=== PATIENT | male | born 1965 | race Caucasian/White ===

== ENCOUNTER 2021-03-29 13:18 | Inpatient (IN) | payer BC ==
[~2021-03-29] VITALS: Ht 182.9 cm; Wt 120.2 kg
[~2021-03-29 13:18] MED LIST: ALLOPURINOL100 MG PO; EXPECTORANT200 MG PO; NORFLEX 100 MG100 MG PO; SILDENAFIL20 MG PO; ZITHROMAX250 MG PO
[2021-03-29 15:22] LABS: HEMOGLOBIN 16.4 gm/dl (14.0-17.5); RED BLOOD COUNT 4.64 M/UL (4.20-5.50); WHITE BLOOD COUNT 10.2 K/UL (4.5-11.0)
[2021-03-29 15:43] LABS: BUN/CREATININE RATIO 15 (0-10)
--- NOTE | 2021-03-30 01:55 | NUR ---
PROVIDER ORDERED 500 ML BLOUS OF NS THEN NS AT 125ML/HR. MAINTAIN SBP 90 or >
[2021-03-30 06:51] LABS: HEMOGLOBIN 14.6 gm/dl (14.0-17.5); RED BLOOD COUNT 4.2 M/UL (4.20-5.50); WHITE BLOOD COUNT 9.2 K/UL (4.5-11.0)
[2021-03-30 07:12] LABS: BUN/CREATININE RATIO 16 (0-10)
[2021-03-31 04:45] LABS: BUN/CREATININE RATIO 12 (0-10)
[2021-04-01 04:22] LABS: HEMOGLOBIN 13.9 gm/dl (14.0-17.5); WHITE BLOOD COUNT 10.8 K/UL (4.5-11.0)
[2021-04-02 07:48] LABS: HEMOGLOBIN 12.7 gm/dl (14.0-17.5); RED BLOOD COUNT 3.65 M/UL (4.20-5.50)
[2021-04-02 07:54] LABS: WHITE BLOOD COUNT 6.9 K/UL (4.5-11.0)
[2021-04-02 08:01] LABS: BUN/CREATININE RATIO 16 (0-10)
--- NOTE | 2021-04-02 14:57 | NUR ---
PATIENT RETURNED FROM OR AGITATED AND UPSET. PULLED O2 OFF, PULLED TELE OFF, RIPPED IV OUT. ATTEMPTED TO GET OOB. NURSE AND DRIVE IN WAITER/WAITRESS ATTEMPTED TO REDIRECT PATIENT TO STAY IN BED. ATTEMPTED TO NOTIFY [employer] MANAGER OF PATIENT BEHAVIOR AND NEED FOR SITTER. NURSE AND DRIVE IN WAITER/WAITRESS CONTINUED TO REDIRECT PATIENT BEHAVIOR. LEFT MESSAGE AT EXTENSION AND PHONE. PATIENT SITTING ON SIDE OF BED AT THIS TIME. REFUSES TO HAVE IV RESTARTED. PATIENT MORE ALERT THAN UPON RETURN FROM OR. STATED HE KNEW HE COULDN'T GET UP ON HIS RIGHT LEG. ATTEMPTED TO GET PATIENT TO LAY BACK IN BED. PATIENT REFUSED. WCTM.
[2021-04-03 07:14] LABS: HEMOGLOBIN 12.3 gm/dl (14.0-17.5); RED BLOOD COUNT 3.56 M/UL (4.20-5.50); WHITE BLOOD COUNT 7.2 K/UL (4.5-11.0)
[2021-04-03 07:51] LABS: BUN/CREATININE RATIO 23 (0-10)
[2021-04-03 12:39] LABS: MONONUCLEAR CELLS 5.6 (75-100); POLYMORPHONUCLEAR % 94.4 (0-25); RBC (AUTOMATED) 3700 (0-2000); WBC (AUTOMATED) 17140 (0-200)
--- NOTE | 2021-04-03 14:10 | NUR ---
AT 1030AM PERFORMED A LEFT KNEE JOINT ASPIRATION WITH ASSISTANCE FROM ANGELA DAVIDSON APRN. 50CC OF FLUID WAS REMOVED. PATIENT TOLERATED WELL. NO DISTRESS OR C/O NOTED. WCTM.
[2021-04-04 06:44] LABS: RED BLOOD COUNT 3.51 M/UL (4.20-5.50); WHITE BLOOD COUNT 5.9 K/UL (4.5-11.0)
[2021-04-04 07:28] LABS: BUN/CREATININE RATIO 23 (0-10)
[2021-04-04 13:11] LABS: PROTEIN, BODY FLUID 4.2 g/dL (.)
[2021-04-05 05:43] LABS: BUN/CREATININE RATIO 18 (0-10)
[2021-04-06 07:01] LABS: HEMOGLOBIN 13.1 gm/dl (14.0-17.5); RED BLOOD COUNT 3.75 M/UL (4.20-5.50); WHITE BLOOD COUNT 6.3 K/UL (4.5-11.0)
[2021-04-06 07:39] LABS: BUN/CREATININE RATIO 17 (0-10)
[2021-04-06] MEDS ORDERED: INVANZ 1 GM VIAL1 GM IV (16:10)
[2021-04-06] MEDS ORDERED: ASPIRIN EC81 MG PO (16:10)
[2021-04-06] MEDS ORDERED: VANCOMYCIN750 MG/151 IV (16:10)
== END 2021-04-06 17:53 | disposition home or self-care (01) | DRG 580 ==
LOC: ER1 13:18 → M/S 19:26 → CDU 19:26 → M/S 03-30 00:03
PROVIDERS: Internal Medicine Infectious Disease; Physician Assistant; Physician Assistant Medical; Podiatrist Foot & Ankle Surgery; ADMIT Internal Medicine
PROC: 0QBL0ZX Excision of Right Tarsal, Open Approach, Diagnostic (ICD-10-PCS; 2021-04-02)
PROC: 0JDQ0ZZ Extraction of Right Foot Subcutaneous Tissue and Fascia, Open Approach (ICD-10-PCS; principal; 2021-04-02 11:48)
DX: L03.115 Cellulitis of right lower limb (principal); E87.1 Hypo-osmolality and hyponatremia; Z20.822 Contact with and (suspected) exposure to COVID-19; E66.01 Morbid (severe) obesity due to excess calories; M10.9 Gout, unspecified; L97.519 Non-pressure chronic ulcer of other part of right foot with unspecified severity; M25.462 Effusion, left knee; R03.0 Elevated blood-pressure reading, without diagnosis of hypertension; Z83.3 Family history of diabetes mellitus; Z90.49 Acquired absence of other specified parts of digestive tract; Z68.29 Body mass index [BMI] 29.0-29.9, adult
CPT/HCPCS: 36415; 73562; 73630; 73700; 80048; 80053; 80202; 81001; 82945; 83036; 83605; 83735; 84157; 84550; 85025; 85027; 85652; 86140; 87040; 87070; 87077; 87186; 87205; 93926; 93970; 96374; 96375; 97161; 97530; 97530-GP-CQ; 99284; C1751; G0378; J0692; J1100; J1170; J1335; J1580; J1650; J2001; J2250; J2270; J2405; J2704; J2795; J3010; J3370; J7030; J7070; J7120; U0002

== ENCOUNTER 2021-04-20 14:06 | Emergency (ER) | payer BC ==
[~2021-04-20 14:06] MED LIST changes: +ASPIRIN EC81 MG PO; +INVANZ 1 GM VIAL1 GM IV; +VANCOMYCIN750 MG/151 IV
[2021-04-20] MEDS ORDERED: BACTRIM DS TAB1 EACH PO (15:41)
== END 2021-04-20 15:50 | disposition home or self-care (01) ==
LOC: ER1 14:06
DX: T82.897A Other specified complication of cardiac prosthetic devices, implants and grafts, initial encounter (principal); L03.115 Cellulitis of right lower limb; F17.200 Nicotine dependence, unspecified, uncomplicated; X58.XXXA Exposure to other specified factors, initial encounter
CPT/HCPCS: 99283

== ENCOUNTER → 2021-04-26 | Outpatient (CLI) | payer BC ==
[~2021-04-26] MED LIST changes: +BACTRIM DS TAB1 EACH PO
--- NOTE | 2021-04-26 13:33 | NUR ---
SINGLE LUMEN PICC LINE INSERTED IN THE LEFT BASILIC VEIN, CUT TO 55 CM. US GUIDANCE USED TO OBTAIN VENOUS ACCESS. 3CG TECHNOLOGY USED TO CONFIRM PICC TIP IN SVC. STERILE TECHNIQUE USED THROUGHOUT CASE. STERILE DRESSING APPLIED AND DATED. PT PROVIDED WITH DRESSING CHANGE INSTRUCTIONS PRIOR TO DISCHARGE. ASPIRATES AND FLUSHES WELL.
== END | disposition home or self-care (01) ==
LOC: OPSV 07:44
DX: L03.031 Cellulitis of right toe (principal)
CPT/HCPCS: C1751

== ENCOUNTER → 2021-04-27 | Outpatient (CLI) | payer BC | LOC: OPSV 14:00 | DX: L03.031 Cellulitis of right toe (principal) | CPT/HCPCS: G0463 ==

== ENCOUNTER → 2021-05-31 | Outpatient (CLI) | payer BC | LOC: OPSV 11:59 | DX: Z45.2 Encounter for adjustment and management of vascular access device (principal) | CPT/HCPCS: G0463 ==